=== PATIENT | male | born 1975 | race Hispanic/Latino ===

== ENCOUNTER 2022-06-27 11:38 | Emergency (ER) | payer OTHER ==
[~2022-06-27] VITALS: Ht 165.1 cm; Wt 67.4 kg
[2022-06-27] MEDS ORDERED: LABETALOL HCL 5 MG/ML 20ML VIAL IV STA (13:09)
[2022-06-27] MEDS ORDERED: INSULIN REGULAR, HUMAN 100 UNIT/1 ML IV ONE (13:15)
[2022-06-27] MEDS ORDERED: LABETALOL HCL 20 ML ONE (13:21)
[2022-06-27] MEDS ORDERED: AMLODIPINE BESYLATE 10 MG TAB ONE (13:24)
[2022-06-27] MEDS ORDERED: INSULIN REGULAR, HUMAN 100 UNIT/1 ML ONE (13:26)
[2022-06-27] MEDS ORDERED: METFORMIN HCL500 MG PO (15:03)
[2022-06-27] MEDS ORDERED: LISINOPRIL10 MG PO (15:04)
== END 2022-06-27 15:19 | disposition home or self-care (01) ==
LOC: FSED 11:45
DX: R50.9 Fever, unspecified (principal); R73.9 Hyperglycemia, unspecified; I10 Essential (primary) hypertension; R94.31 Abnormal electrocardiogram [ECG] [EKG]
CPT/HCPCS: 36415; 71046; 80053; 82553; 82948; 84484; 85025; 93005; 96374; 96375; 99284; J1817; J3490